=== PATIENT | male | born 1995 | race African-American/Black ===

== ENCOUNTER 2017-02-14 07:44 | Emergency (ER) | payer MEDICAID ==
[~2017-02-14] VITALS: Ht 170.2 cm; Wt 63.0 kg
[2017-02-14 07:54] VITALS: BP 122/49
== END 2017-02-14 08:21 | disposition left against medical advice (07) ==
LOC: ER 07:51
DX: R10.9 Unspecified abdominal pain (principal); Z53.21 Procedure and treatment not carried out due to patient leaving prior to being seen by health care provider

== ENCOUNTER 2017-02-24 10:22 | Emergency (ER) | payer MEDICAID ==
[~2017-02-24] VITALS: Ht 172.7 cm; Wt 63.5 kg
[2017-02-24 10:35] VITALS: BP 111/58
== END 2017-02-24 16:08 | disposition left against medical advice (07) ==
LOC: ER 13:51
DX: R30.0 Dysuria (principal); Z53.21 Procedure and treatment not carried out due to patient leaving prior to being seen by health care provider

== ENCOUNTER 2017-02-25 14:25 | Emergency (ER) | payer MEDICAID ==
[~2017-02-25] VITALS: Ht 172.7 cm; Wt 66.0 kg
[2017-02-25 21:41] LABS: CLARITY URINE CLOUDY (CLEAR); COLOR URINE YELLOW (YELLOW); GLUCOSE URINE NEGATIVE (NEGATIVE); KETONES URINE TRACE (NEGATIVE); LEUKOCYTE ESTERASE URINE 3+ (NEGATIVE); NITRITE URINE NEGATIVE (NEGATIVE); OCCULT BLOOD URINE TRACE (NEGATIVE); PH URINE 7.5 (4.5-8.0); PROTEIN URINE TRACE (NEGATIVE); SPECIFIC GRAVITY URINE 1.026 (1.005-1.030)
[2017-02-25] MEDS ORDERED: AZITHROMYCIN 500 MG TABLET PO ONE (21:45)
[2017-02-25] MEDS ORDERED: LIDOCAINE HCL 1% 20ML VIAL (Pyxis) INJ INFIL ONE (21:45)
[2017-02-25] MEDS ORDERED: CEFTRIAXONE SODIUM 250 MG/VIAL IM ONE (21:45)
[2017-02-25 22:03] VITALS: BP 120/79
== END 2017-02-25 22:04 | disposition home or self-care (01) ==
LOC: ER 15:00
DX: Z20.2 Contact with and (suspected) exposure to infections with a predominantly sexual mode of transmission (principal); R30.0 Dysuria; R36.9 Urethral discharge, unspecified; N39.0 Urinary tract infection, site not specified
CPT/HCPCS: 81001; 87491; 87591; 96372; 99284; J0696; J3490

== ENCOUNTER 2017-05-21 11:00 | Emergency (ER) | payer MEDICAID ==
[~2017-05-21] VITALS: Ht 172.7 cm; Wt 66.0 kg
[2017-05-21 12:12] VITALS: BP 121/79
== END 2017-05-21 16:34 | disposition home or self-care (01) ==
LOC: ER 14:08
DX: R05 Cough (principal); Z72.0 Tobacco use
CPT/HCPCS: 71045; 99283

== ENCOUNTER 2017-06-15 09:28 | Emergency (ER) | payer MEDICAID ==
[~2017-06-15] VITALS: Ht 172.7 cm; Wt 64.0 kg
[2017-06-15 10:28] VITALS: BP 133/87
[2017-06-15] MEDS ORDERED: PROMETHAZINE HCL 25MG TABLET PO ONE (11:15)
[2017-06-15] MEDS ORDERED: IBUPROFEN 800MG TABLET PO ONE (11:15)
== END 2017-06-15 13:17 | disposition home or self-care (01) ==
LOC: ER 10:23
DX: B34.9 Viral infection, unspecified (principal); J45.901 Unspecified asthma with (acute) exacerbation; F17.200 Nicotine dependence, unspecified, uncomplicated
CPT/HCPCS: 71045; 87804; 99285; Q0169

== ENCOUNTER 2017-06-18 22:19 | Emergency (ER) | payer MEDICAID ==
[~2017-06-18] VITALS: Ht 172.7 cm; Wt 63.2 kg
[2017-06-19 01:31] VITALS: BP 121/79
== END 2017-06-19 01:33 | disposition home or self-care (01) ==
LOC: ER 22:19
DX: J06.9 Acute upper respiratory infection, unspecified (principal); J45.909 Unspecified asthma, uncomplicated; F12.10 Cannabis abuse, uncomplicated
CPT/HCPCS: 71045; 87070; 87430; 99285

== ENCOUNTER 2017-07-23 12:33 | Emergency (ER) | payer MEDICAID ==
[~2017-07-23] VITALS: Ht 172.7 cm; Wt 65.0 kg
[2017-07-23 12:46] VITALS: BP 117/57
== END 2017-07-23 19:15 | disposition left against medical advice (07) ==
LOC: ER 15:19
DX: Z53.21 Procedure and treatment not carried out due to patient leaving prior to being seen by health care provider (principal)

== ENCOUNTER 2023-03-29 13:57 | Emergency (ER) | payer MEDICAID ==
[~2023-03-29] VITALS: Ht 175.3 cm; Wt 105.0 kg
[2023-03-29 14:19] VITALS: O2SAT 100
[2023-03-29] MEDS ORDERED: AZITHROMYCIN 500 MG TABLET PO ONE (15:45)
[2023-03-29] MEDS ORDERED: CEFTRIAXONE SODIUM 500 MG/VIAL IM ONE (15:45)
[2023-03-29] MEDS ORDERED: DOXY100C5 MT (15:47)
[2023-03-29] MEDS ORDERED: PROT40 MT (15:47)
[2023-03-29 16:49] VITALS: BP 145/91; PULSE 100; RESP 20; TEMP 97.4
[2023-04-01 04:07] LABS: CHLAMYDIA TRACHOMATIS NAA Negative (Negative); NEISSERIA GONORRHOEAE NAA Negative (Negative)
== END 2023-03-29 16:51 | disposition home or self-care (01) ==
LOC: ER 14:26
DX: N50.819 Testicular pain, unspecified (principal); R07.0 Pain in throat; R07.9 Chest pain, unspecified; J45.909 Unspecified asthma, uncomplicated; F12.90 Cannabis use, unspecified, uncomplicated; Z11.3 Encounter for screening for infections with a predominantly sexual mode of transmission
CPT/HCPCS: 99285; 71045; 87491; 87591; 93005; 96372; J0696

== ENCOUNTER 2023-12-20 13:53 | Emergency (ER) | payer MEDICAID ==
[~2023-12-20] VITALS: Ht 175.3 cm; Wt 81.6 kg
[~2023-12-20 13:53] MED LIST: DOXY100C5 MT; PROT40 MT
[2023-12-20 13:57] VITALS: BP 130/74; PULSE 91; RESP 18; TEMP 99; O2SAT 98
== END 2023-12-20 15:58 | disposition left against medical advice (07) ==
LOC: ER 13:53
DX: B00.9 Herpesviral infection, unspecified (principal); J45.909 Unspecified asthma, uncomplicated; F12.10 Cannabis abuse, uncomplicated
CPT/HCPCS: 99281

== ENCOUNTER 2025-02-16 14:31 | Emergency (ER) | payer MEDICAID ==
[~2025-02-16] VITALS: Ht 177.8 cm; Wt 91.0 kg
[2025-02-16 14:32] VITALS: O2SAT 99
[2025-02-16 14:34] VITALS: BP 114/71; PULSE 94; RESP 16; TEMP 36.8; O2SAT 100
== END 2025-02-16 17:48 | disposition left against medical advice (07) ==
LOC: ER 14:31
DX: R10.9 Unspecified abdominal pain (principal); Z53.21 Procedure and treatment not carried out due to patient leaving prior to being seen by health care provider
CPT/HCPCS: 99281